=== PATIENT | female | born 1945 | race Caucasian/White ===

== ENCOUNTER 2022-01-23 15:55 | Emergency (ER) | payer MEDICARE, MEDICAID ==
[2022-01-23 16:36] LABS: #Eosinphils 0.2 10x3/uL (0.0-0.5); #Monocytes 0.8 10x3/uL (0.0-1.1); #Neutrophils 7.3 10x3/uL (1.5-8.4); %Basophils 0.3 % (0.0-2.0); %Eosinophils 1.9 % (0.0-6.0); %Monocytes 7.5 % (0.0-10.0); %Neutrophils 70.7 % (40.0-75.0); Hemoglobin 11.8 g/dL (12.0-15.5); Mean Corpuscular HGB CONC 30.7 g/dL (32.0-36.0); Mean Corpuscular Hemoglobin 25.3 pg (27.0-33.0); Mean Corpuscular Volume 82.2 fl (81.6-98.3); Mean Platelet Volume 9.5 fl (7.4-10.4); Platelet Count 294 10x3/uL (150-450); RBC Distribution Width 16.5 % (11.5-14.5); Red Blood Cell (RBC) Count 4.67 10x6/uL (3.90-5.03); White Blood Cell (WBC) Count 10.3 10x3/uL (3.5-10.5)
[2022-01-23 16:47] LABS: ALT (SGPT) 12 U/L (8-55); AST (SGOT) 16 U/L (5-34); Alkaline Phosphatase 87 U/L (40-110); Anion Gap 18 mmol/L (10-20); BUN (Urea Nitrogen) 33 mg/dL (9.8-20.1); Bilirubin, Total 0.7 mg/dL (0.2-1.2); Calc. Creatinine Clearance 0 mL/min (70-130); Calcium 10.5 mg/dL (7.8-10.44); Carbon Dioxide 19 mmol/L (23-31); Chloride 104 mmol/L (98-107); Estimated GFR 65; Globulin 3.3 g/dL (2.4-3.5); Glucose 134 mg/dL (83-110); Potassium 4.2 mmol/L (3.5-5.1); Protein, Total 7.3 g/dL (5.8-8.1); Sodium 137 mmol/L (136-145)
[2022-01-23] MEDS ORDERED: Ventolin HFA Inhaler 60 PUFF INHALER ONE (18:03)
[2022-01-23] MEDS ORDERED: PROPOFOL 20 ML ONE (19:12)
[2022-01-23] MEDS ORDERED: PHENYLEPHRINE-NS 100 MCG/ML 10 ML SYRINGE ONE (19:12)
== END 2022-01-23 19:15 | disposition admitted as inpatient to this hospital (09) ==
LOC: CSHERS 15:55
PROC: 0D728ZZ Dilation of Middle Esophagus, Via Natural or Artificial Opening Endoscopic (ICD-10-PCS; principal; 2022-01-23)
DX: T18.128A Food in esophagus causing other injury, initial encounter (principal); J44.9 Chronic obstructive pulmonary disease, unspecified; K21.9 Gastro-esophageal reflux disease without esophagitis; E78.00 Pure hypercholesterolemia, unspecified; I10 Essential (primary) hypertension
CPT/HCPCS: 43249; 71045; 80053; 85025; 93005; 96374; 99285; J1610; 36415; J2704

== ENCOUNTER 2022-04-09 09:22 | Emergency (ER) | payer MEDICARE, MEDICAID ==
[2022-04-09] MEDS ORDERED: Ibuprofen 200 MG TAB ONE (09:55)
[2022-04-09] MEDS ORDERED: Acetaminophen 325 MG TAB ONE (09:55)
[2022-04-09 10:25] LABS: Bilirubin Neg (Negative); Blood, Urine Negative (Negative); Clarity Clear (Clear); Glucose, Urine (Dipstick) >=1000 mg/dL (Negative); Ketone, Urine Negative (Negative); Leukocyte Negative (Negative); Nitrite Negative (Negative); Protein, Urine (Dipstick) Negative (Neg-Trace); Urobilinogen Normal mg/dL (Less than 2)
[2022-04-09 10:34] LABS: #Basophils 0.1 10x3/uL (0.0-0.2); #Eosinphils 0.5 10x3/uL (0.0-0.5); #Monocytes 1.2 10x3/uL (0.0-1.1); #Neutrophils 9.6 10x3/uL (1.5-8.4); %Basophils 0.4 % (0.0-2.0); %Eosinophils 3.7 % (0.0-6.0); %Lymphocytes 14.4 % (18.0-47.0); %Monocytes 9.1 % (0.0-10.0); Hemoglobin 11.7 g/dL (12.0-15.5); Mean Corpuscular Hemoglobin 26.7 pg (27.0-33.0); Mean Corpuscular Volume 81.1 fl (81.6-98.3); Mean Platelet Volume 9.6 fl (7.4-10.4); Platelet Count 360 10x3/uL (150-450); Red Blood Cell (RBC) Count 4.38 10x6/uL (3.90-5.03); White Blood Cell (WBC) Count 13.3 10x3/uL (3.5-10.5)
[2022-04-09 10:42] LABS: ALT (SGPT) 12 U/L (8-55); AST (SGOT) 10 U/L (5-34); Albumin 3.7 g/dL (3.4-4.8); Alkaline Phosphatase 215 U/L (40-110); Anion Gap 18 mmol/L (10-20); BUN (Urea Nitrogen) 50 mg/dL (9.8-20.1); Bilirubin, Total 0.4 mg/dL (0.2-1.2); Calc. Creatinine Clearance 0 mL/min (70-130); Calcium 9.6 mg/dL (7.8-10.44); Carbon Dioxide 22 mmol/L (23-31); Chloride 100 mmol/L (98-107); Estimated GFR 49; Globulin 3.4 g/dL (2.4-3.5); Glucose 397 mg/dL (83-110); Lipase 18 U/L (8-78); Potassium 4.1 mmol/L (3.5-5.1); Protein, Total 7.1 g/dL (5.8-8.1); Sodium 136 mmol/L (136-145)
== END 2022-04-09 15:17 | disposition home or self-care (01) ==
LOC: CSHERS 09:22
DX: M54.50 Low back pain, unspecified (principal); E86.0 Dehydration; E11.9 Type 2 diabetes mellitus without complications; J44.9 Chronic obstructive pulmonary disease, unspecified; E78.5 Hyperlipidemia, unspecified; K21.9 Gastro-esophageal reflux disease without esophagitis; I10 Essential (primary) hypertension
CPT/HCPCS: 72131; 80053; 81003; 83690; 85025; 96360; 96361

== ENCOUNTER 2022-08-20 18:20 | Observation (INO) | payer MEDICARE, MEDICAID ==
[2022-08-20 19:40] LABS: #Basophils 0.1 10x3/uL (0.0-0.2); #Eosinphils 0.1 10x3/uL (0.0-0.5); #Monocytes 1.4 10x3/uL (0.0-1.1); #Neutrophils 10.4 10x3/uL (1.5-8.4); %Basophils 0.4 % (0.0-2.0); %Eosinophils 0.7 % (0.0-6.0); %Lymphocytes 13.3 % (18.0-47.0); %Monocytes 9.9 % (0.0-10.0); %Neutrophils 75.3 % (40.0-75.0); Hemoglobin 11.2 g/dL (12.0-15.5); Mean Corpuscular HGB CONC 31.2 g/dL (32.0-36.0); Mean Corpuscular Hemoglobin 25.7 pg (27.0-33.0); Mean Corpuscular Volume 82.3 fl (81.6-98.3); Mean Platelet Volume 10.2 fl (7.4-10.4); Platelet Count 193 10x3/uL (150-450); RBC Distribution Width 15.9 % (11.5-14.5); Red Blood Cell (RBC) Count 4.36 10x6/uL (3.90-5.03); White Blood Cell (WBC) Count 13.8 10x3/uL (3.5-10.5)
[2022-08-20 19:49] LABS: Acetaminophen Less than 10.0 mcg/mL (10.0-30.0); Alcohol Less than 10 mg/dL (Less than 10); Salicylate Less than 8.0 mg/dL (15.0-30.0)
[2022-08-20 19:50] LABS: ALT (SGPT) 42 U/L (8-55); AST (SGOT) 64 U/L (5-34); Albumin 3.8 g/dL (3.4-4.8); Alkaline Phosphatase 113 U/L (40-110); Anion Gap 16 mmol/L (10-20); BUN (Urea Nitrogen) 47 mg/dL (9.8-20.1); Calc. Creatinine Clearance 0 mL/min (70-130); Calcium 8.9 mg/dL (7.8-10.44); Carbon Dioxide 22 mmol/L (23-31); Chloride 104 mmol/L (98-107); Estimated GFR 40; Glucose 195 mg/dL (83-110); Potassium 4.2 mmol/L (3.5-5.1); Protein, Total 6.8 g/dL (5.8-8.1); Sodium 138 mmol/L (136-145)
[2022-08-20 20:32] LABS: Bilirubin Neg (Negative); Blood, Urine Negative (Negative); Clarity Mucous (Clear); Glucose, Urine (Dipstick) Normal (Negative); Ketone, Urine Negative (Negative); Leukocyte Negative (Negative); Nitrite Negative (Negative); Protein, Urine (Dipstick) 15 mg/dl (Neg-Trace); Urobilinogen Normal mg/dL (Less than 2)
[2022-08-20 20:38] LABS: Platelet Clumps SLIGHT; Platelet Morphology Comment Appears Adequate; RBC Morphology Within Normal Limits
[2022-08-20 20:42] LABS: Amphetamine Not Detected (NotDetected); Barbiturates Screen Not Detected (NotDetected); Benzodiazepine Screen Not Detected (NotDetected); Cocaine Metabolite Screen Not Detected (NotDetected); Methadone Not Detected (NotDetected); Methamphetamine Not Detected (NotDetected); Opiate Screen Detected (NotDetected); Oxycodone Screen Not Detected (NotDetected); Phencyclidine (PCP) Not Detected (NotDetected); THC/Cannabinoid Screen Not Detected (NotDetected); Tricyclic Screen Not Detected (NotDetected)
[2022-08-20 20:44] LABS: CKMB 29.1 ng/mL (0-6.6)
[2022-08-20] MEDS ORDERED: Dextrose 50% Abboject 50 ML SYRINGE SLOW IVP PRN (22:31)
[2022-08-20] MEDS ORDERED: HumaLOG 300 UNITS/3 ML VIAL SC PRN (22:31)
[2022-08-20] MEDS ORDERED: Dextrose 5% in Water 1,000 ML IV PRN (22:31)
[2022-08-20 23:13] LABS: Troponin I 0.208 ng/mL (< 0.028)
[2022-08-21] MEDS ORDERED: CEFAZOLIN 1 GM VIAL ONE ×2 (00:41→07:48)
[2022-08-21] MEDS: CEFAZOLIN 1 GM in Sodium Chloride 0.9% 100 ML IVPB SCH ×2 (00:58→08:14)
[2022-08-21] MEDS: Sodium Chloride 0.9% 1,000 ML IV SCH ×2 (00:58→08:14)
[2022-08-21 04:44] LABS: #Basophils 0.1 10x3/uL (0.0-0.2); #Eosinphils 0.3 10x3/uL (0.0-0.5); #Monocytes 1.1 10x3/uL (0.0-1.1); #Neutrophils 8.7 10x3/uL (1.5-8.4); %Basophils 0.4 % (0.0-2.0); %Eosinophils 2.1 % (0.0-6.0); %Lymphocytes 14.9 % (18.0-47.0); %Monocytes 9.1 % (0.0-10.0); Anion Gap 14 mmol/L (10-20); BUN (Urea Nitrogen) 34 mg/dL (9.8-20.1); Calc. Creatinine Clearance 84 mL/min (70-130); Calcium 8.4 mg/dL (7.8-10.44); Carbon Dioxide 21 mmol/L (23-31); Chloride 110 mmol/L (98-107); Estimated GFR 59; Glucose 136 mg/dL (83-110); Hemoglobin 10.2 g/dL (12.0-15.5); Mean Corpuscular HGB CONC 31.4 g/dL (32.0-36.0); Mean Corpuscular Volume 82.7 fl (81.6-98.3); Mean Platelet Volume 9.6 fl (7.4-10.4); Platelet Count 294 10x3/uL (150-450); Potassium 3.8 mmol/L (3.5-5.1); RBC Distribution Width 15.8 % (11.5-14.5); Red Blood Cell (RBC) Count 3.93 10x6/uL (3.90-5.03); Sodium 141 mmol/L (136-145); White Blood Cell (WBC) Count 11.9 10x3/uL (3.5-10.5)
[2022-08-21 04:57] LABS: Troponin I 0.224 ng/mL (< 0.028)
[2022-08-21] MEDS ORDERED: Insulin Regular 300 UNITS/3 ML VIAL ONE (07:27)
[2022-08-21] MEDS ORDERED: Mupirocin 2% Ointment 22 GM Tube TOP SCH (09:00)
[2022-08-21 09:02] VITALS: BMI 36.3
[2022-08-21] MEDS ORDERED: traMADol HCl 50 MG TAB PO SCH (10:00)
[2022-08-21] MEDS ORDERED: Gabapentin 100 MG CAP PO SCH (10:15)
[2022-08-21 13:22] VITALS: BP 167/70; TEMP 97.5
== END 2022-08-21 15:26 | disposition home or self-care (01) ==
LOC: CSHERS 18:20 → CSHERHOLD 23:00 → INTOOBSV 23:00 → CSHTELE 08-21 07:31
PROVIDERS: ADMIT Family Medicine; ATTEND Family Medicine
DX: G93.40 Encephalopathy, unspecified (principal); D72.829 Elevated white blood cell count, unspecified; R77.8 Other specified abnormalities of plasma proteins; I12.9 Hypertensive chronic kidney disease with stage 1 through stage 4 chronic kidney disease, or unspecified chronic kidney disease; N18.32 Chronic kidney disease, stage 3b; R07.9 Chest pain, unspecified; E11.22 Type 2 diabetes mellitus with diabetic chronic kidney disease; J44.9 Chronic obstructive pulmonary disease, unspecified; R41.82 Altered mental status, unspecified; G89.29 Other chronic pain; Z79.4 Long term (current) use of insulin; Z79.899 Other long term (current) drug therapy; E78.5 Hyperlipidemia, unspecified; Z90.710 Acquired absence of both cervix and uterus; Z90.49 Acquired absence of other specified parts of digestive tract; Z88.5 Allergy status to narcotic agent
CPT/HCPCS: 36415; 36416; 51701; 70450; 71045; 80048; 80053; 80306; 80307; 81003; 82553; 83735; 83880; 84145; 84443; 84484; 85025; 87040; 93005; 93010; 93306; 94760; 94762; 96374; G0378; J0690; J1815; J3490; J7050

== ENCOUNTER 2022-12-17 12:59 | Inpatient (IN) | payer MEDICARE ==
[2022-12-17] MEDS ORDERED: Ondansetron PF 4 MG/2 ML Vial IVP PRN (14:22)
[2022-12-17] MEDS ORDERED: Nitroglycerin 0.4 MG TAB (25 Tab Bottle) SL PRN (14:22)
[2022-12-17] MEDS ORDERED: Glucagon 1 MG/ML KIT IM PRN (14:53)
[2022-12-17] MEDS ORDERED: Dextrose 5% in Water 1,000 ML IV PRN (14:53)
[2022-12-17] MEDS ORDERED: Dextrose 50% Abboject 50 ML SYRINGE SLOW IVP PRN (14:53)
[2022-12-17 15:49] LABS: Troponin I Less than 0.010 ng/mL (< 0.028)
[2022-12-17] MEDS: Acetaminophen 325 MG TAB PO PRN (17:02)
[2022-12-17 18:11] LABS: Troponin I Less than 0.010 ng/mL (< 0.028)
[2022-12-17 19:59] LABS: Hemoglobin A1c 12.8 % (4.0-6.0)
[2022-12-17 21:13] VITALS: BMI 34.7
[2022-12-17] MEDS: HumaLOG 300 UNITS/3 ML VIAL SC PRN (22:09)
[2022-12-18] MEDS: Acetaminophen 325 MG TAB PO PRN ×2 (03:48→08:51)
[2022-12-18 04:45] LABS: Cardiac Risk 4.1 (Less than 4.5)
[2022-12-18] MEDS ORDERED: Lorazepam 0.5 MG TAB PO PRN (08:22)
[2022-12-18] MEDS: Aspirin Chewable 81 MG TAB PO SCH (08:51)
[2022-12-18] MEDS: Lorazepam 0.5 MG TAB PO PRN (10:36)
[2022-12-18] MEDS: traMADol HCl 50 MG TAB PO PRN (10:36)
[2022-12-18] MEDS ORDERED: Lisinopril 5 MG TAB PO SCH (12:00)
[2022-12-18] MEDS: HumaLOG 300 UNITS/3 ML VIAL SC PRN ×2 (12:17→16:45)
[2022-12-18] MEDS: Atorvastatin Calcium 20 MG TAB PO SCH (21:00)
[2022-12-19] MEDS: Lisinopril 5 MG TAB PO SCH (07:45)
[2022-12-19] MEDS: Aspirin Chewable 81 MG TAB PO SCH (09:05)
[2022-12-19] MEDS ORDERED: [UNRECOGNIZED DRUG - OTHER] PO PRN (11:35)
[2022-12-19] MEDS ORDERED: BUDESONIDE FORMOTEROL PO PRN (11:35)
[2022-12-19] MEDS: traMADol HCl 50 MG TAB PO PRN ×2 (14:08→20:55)
[2022-12-19] MEDS: HumaLOG 300 UNITS/3 ML VIAL SC PRN ×2 (14:11→20:57)
[2022-12-19] MEDS: metFORMIN 500 MG TAB PO SCH (16:18)
[2022-12-19] MEDS: Mometasone/Formoterol 60 PUFF AER INH SCH (19:54)
[2022-12-19] MEDS: Gabapentin 300 MG CAP PO SCH (20:54)
[2022-12-19] MEDS: Docusate 100 MG CAP PO SCH (20:56)
[2022-12-19] MEDS: Atorvastatin Calcium 20 MG TAB PO SCH (20:56)
[2022-12-19] MEDS ORDERED: Lantus 1000 UNITS/10 ML VIAL SC SCH (21:00)
[2022-12-20] MEDS: Mometasone/Formoterol 60 PUFF AER INH SCH ×2 (07:02→19:45)
[2022-12-20] MEDS: HumaLOG 300 UNITS/3 ML VIAL SC PRN ×4 (07:26→21:46)
[2022-12-20] MEDS ORDERED: Lantus 1000 UNITS/10 ML VIAL SC SCH (09:00)
[2022-12-20] MEDS: Amlodipine 10 MG TAB PO SCH (09:20)
[2022-12-20] MEDS: Lisinopril 5 MG TAB PO SCH (09:20)
[2022-12-20] MEDS: Aspirin Chewable 81 MG TAB PO SCH (09:21)
[2022-12-20] MEDS: Lantus 1000 UNITS/10 ML VIAL SC SCH ×2 (09:21→21:46)
[2022-12-20] MEDS: Docusate 100 MG CAP PO SCH ×2 (09:21→21:43)
[2022-12-20] MEDS: traMADol HCl 50 MG TAB PO PRN ×2 (09:26→17:20)
[2022-12-20] MEDS ORDERED: Ipratropium/Albuterol 3 ML NEB NEB PRN (10:47)
[2022-12-20 11:43] LABS: #Eosinphils 0.2 10x3/uL (0.0-0.5); #Monocytes 0.7 10x3/uL (0.0-1.1); #Neutrophils 6.8 10x3/uL (1.5-8.4); %Basophils 0.3 % (0.0-2.0); %Eosinophils 2.3 % (0.0-6.0); %Lymphocytes 14.8 % (18.0-47.0); %Monocytes 7.6 % (0.0-10.0); %Neutrophils 74.6 % (40.0-75.0); Hematocrit 39.5 % (34.9-44.5); Hemoglobin 12.6 g/dL (12.0-15.5); Mean Corpuscular HGB CONC 31.9 g/dL (32.0-36.0); Mean Corpuscular Hemoglobin 28.3 pg (27.0-33.0); Mean Corpuscular Volume 88.6 fl (81.6-98.3); Mean Platelet Volume 9.7 fl (7.4-10.4); Platelet Count 298 10x3/uL (150-450); RBC Distribution Width 12.9 % (11.5-14.5); Red Blood Cell (RBC) Count 4.46 10x6/uL (3.90-5.03); White Blood Cell (WBC) Count 9.2 10x3/uL (3.5-10.5)
[2022-12-20 13:40] LABS: ALT (SGPT) 14 U/L (8-55); AST (SGOT) 15 U/L (5-34); Albumin 3.7 g/dL (3.4-4.8); Alkaline Phosphatase 93 U/L (40-110); Anion Gap 17 mmol/L (10-20); BUN (Urea Nitrogen) 35 mg/dL (9.8-20.1); Bilirubin, Total 0.6 mg/dL (0.2-1.2); Calc. Creatinine Clearance 64 mL/min (70-130); Calcium 8.9 mg/dL (7.8-10.44); Carbon Dioxide 20 mmol/L (23-31); Chloride 105 mmol/L (98-107); Estimated GFR 53; Globulin 2.9 g/dL (2.4-3.5); Glucose 258 mg/dL (83-110); Potassium 4.4 mmol/L (3.5-5.1); Protein, Total 6.6 g/dL (5.8-8.1); Sodium 138 mmol/L (136-145)
[2022-12-20] MEDS: Lorazepam 0.5 MG TAB PO PRN (17:19)
[2022-12-20] MEDS: metFORMIN 500 MG TAB PO SCH (17:19)
[2022-12-20] MEDS ORDERED: Ziprasidone 20 MG CAP PO SCH (18:30)
[2022-12-20] MEDS: Gabapentin 300 MG CAP PO SCH (21:43)
[2022-12-20] MEDS: Atorvastatin Calcium 20 MG TAB PO SCH (21:45)
[2022-12-21] MEDS: HumaLOG 300 UNITS/3 ML VIAL SC PRN ×4 (06:44→21:38)
[2022-12-21] MEDS: Mometasone/Formoterol 60 PUFF AER INH SCH ×2 (07:20→18:48)
[2022-12-21] MEDS: Amlodipine 10 MG TAB PO SCH (11:22)
[2022-12-21] MEDS: Aspirin Chewable 81 MG TAB PO SCH (11:23)
[2022-12-21] MEDS: Docusate 100 MG CAP PO SCH ×2 (11:24→21:38)
[2022-12-21] MEDS: Lisinopril 5 MG TAB PO SCH (11:24)
[2022-12-21] MEDS: DULoxetine 20 MG CAP PO SCH (11:24)
[2022-12-21] MEDS: Lantus 1000 UNITS/10 ML VIAL SC SCH ×2 (11:31→21:39)
[2022-12-21] MEDS: metFORMIN 500 MG TAB PO SCH ×2 (16:42→21:37)
[2022-12-21] MEDS ORDERED: QUEtiapine 25 MG TAB PO SCH (21:00)
[2022-12-21] MEDS: Gabapentin 300 MG CAP PO SCH (21:37)
[2022-12-21] MEDS: Atorvastatin Calcium 20 MG TAB PO SCH (21:37)
[2022-12-21] MEDS: Acetaminophen 325 MG TAB PO PRN (21:38)
[2022-12-21] MEDS: traMADol HCl 50 MG TAB PO PRN (23:14)
[2022-12-22] MEDS: HumaLOG 300 UNITS/3 ML VIAL SC PRN ×2 (06:31→18:00)
[2022-12-22] MEDS: Mometasone/Formoterol 60 PUFF AER INH SCH (07:15)
[2022-12-22] MEDS: Aspirin Chewable 81 MG TAB PO SCH (08:52)
[2022-12-22] MEDS: Amlodipine 10 MG TAB PO SCH (08:52)
[2022-12-22] MEDS: DULoxetine 20 MG CAP PO SCH (08:52)
[2022-12-22] MEDS: Docusate 100 MG CAP PO SCH (08:52)
[2022-12-22] MEDS: metFORMIN 500 MG TAB PO SCH ×2 (08:52→14:05)
[2022-12-22] MEDS: Lisinopril 5 MG TAB PO SCH (08:52)
[2022-12-22] MEDS: Lantus 1000 UNITS/10 ML VIAL SC SCH (08:53)
[2022-12-22 11:35] LABS: #Eosinphils 0.2 10x3/uL (0.0-0.5); #Monocytes 0.7 10x3/uL (0.0-1.1); #Neutrophils 5.2 10x3/uL (1.5-8.4); %Basophils 0.4 % (0.0-2.0); %Eosinophils 3.2 % (0.0-6.0); %Lymphocytes 18.1 % (18.0-47.0); %Monocytes 8.9 % (0.0-10.0); Hemoglobin 12.3 g/dL (12.0-15.5); Mean Corpuscular HGB CONC 30.8 g/dL (32.0-36.0); Mean Corpuscular Hemoglobin 28.5 pg (27.0-33.0); Mean Corpuscular Volume 92.6 fl (81.6-98.3); Mean Platelet Volume 10.2 fl (7.4-10.4); Platelet Count 239 10x3/uL (150-450); RBC Distribution Width 13.1 % (11.5-14.5); Red Blood Cell (RBC) Count 4.32 10x6/uL (3.90-5.03); White Blood Cell (WBC) Count 7.6 10x3/uL (3.5-10.5)
[2022-12-22 11:38] LABS: ALT (SGPT) 17 U/L (8-55); AST (SGOT) 18 U/L (5-34); Albumin 3.4 g/dL (3.4-4.8); Alkaline Phosphatase 100 U/L (40-110); Anion Gap 15 mmol/L (10-20); BUN (Urea Nitrogen) 38 mg/dL (9.8-20.1); Bilirubin, Total 0.4 mg/dL (0.2-1.2); Calc. Creatinine Clearance 68 mL/min (70-130); Calcium 8.8 mg/dL (7.8-10.44); Carbon Dioxide 21 mmol/L (23-31); Chloride 107 mmol/L (98-107); Estimated GFR 57; Glucose 196 mg/dL (83-110); Potassium 4.5 mmol/L (3.5-5.1); Protein, Total 6.4 g/dL (5.8-8.1); Sodium 138 mmol/L (136-145)
[2022-12-22] MEDS ORDERED: Meropenem 1 GM in Sodium Chloride 0.9% 100 ML IVPB SCH ×2 (12:00→20:00)
[2022-12-22] MEDS ORDERED: Ertapenem 1 GM in Sodium Chloride 0.9% 50 ML IVPB SCH (16:00)
[2022-12-22 18:17] VITALS: BP 145/72; TEMP 97.4
== END 2022-12-22 19:29 | DRG 313 ==
LOC: CSHTELE 14:04 → OBSVTOIN 12-19 11:27
PROVIDERS: ADMIT Internal Medicine; ATTEND Internal Medicine
DX: R07.2 Precordial pain (principal); G93.40 Encephalopathy, unspecified; N30.00 Acute cystitis without hematuria; F41.9 Anxiety disorder, unspecified; F03.90 Unspecified dementia, unspecified severity, without behavioral disturbance, psychotic disturbance, mood disturbance, and anxiety; I10 Essential (primary) hypertension; E78.5 Hyperlipidemia, unspecified; E11.9 Type 2 diabetes mellitus without complications; I25.10 Atherosclerotic heart disease of native coronary artery without angina pectoris; E11.65 Type 2 diabetes mellitus with hyperglycemia; J44.9 Chronic obstructive pulmonary disease, unspecified; B96.1 Klebsiella pneumoniae [K. pneumoniae] as the cause of diseases classified elsewhere; G47.33 Obstructive sleep apnea (adult) (pediatric); Z79.4 Long term (current) use of insulin; Z93.3 Colostomy status; Z90.49 Acquired absence of other specified parts of digestive tract; Z90.710 Acquired absence of both cervix and uterus; Z88.5 Allergy status to narcotic agent; Z79.899 Other long term (current) drug therapy
CPT/HCPCS: 36415; 36416; 80053; 80061; 83036; 85025; 87040; 87077; 87086; 87186; 93005; 93010; 94640; 94760; J1335; J1650; J1815; J2185; J2405; J3490; J7620

== ENCOUNTER 2023-03-21 02:52 | Inpatient (IN) | payer MEDICARE ==
[2023-03-21 03:31] LABS: #Eosinphils 0.2 10x3/uL (0.0-0.5); #Monocytes 1.1 10x3/uL (0.0-1.1); #Neutrophils 8.5 10x3/uL (1.5-8.4); %Basophils 0.3 % (0.0-2.0); %Eosinophils 1.3 % (0.0-6.0); %Lymphocytes 15.6 % (18.0-47.0); %Monocytes 9.6 % (0.0-10.0); %Neutrophils 72.9 % (40.0-75.0); Hematocrit 41.4 % (34.9-44.5); Hemoglobin 13.9 g/dL (12.0-15.5); Mean Corpuscular HGB CONC 33.6 g/dL (32.0-36.0); Mean Corpuscular Hemoglobin 27.6 pg (27.0-33.0); Mean Corpuscular Volume 82.3 fl (81.6-98.3); Mean Platelet Volume 10.5 fl (7.4-10.4); Platelet Count 318 10x3/uL (150-450); RBC Distribution Width 13.5 % (11.5-14.5); Red Blood Cell (RBC) Count 5.03 10x6/uL (3.90-5.03); White Blood Cell (WBC) Count 11.7 10x3/uL (3.5-10.5)
[2023-03-21 03:47] LABS: ALT (SGPT) 11 U/L (8-55); AST (SGOT) 8 U/L (5-34); Albumin 4.1 g/dL (3.4-4.8); Alkaline Phosphatase 196 U/L (40-110); Anion Gap 20 mmol/L (10-20); BUN (Urea Nitrogen) 68 mg/dL (9.8-20.1); Bilirubin, Total 0.5 mg/dL (0.2-1.2); Calc. Creatinine Clearance 0 mL/min (70-130); Calcium 9.5 mg/dL (7.8-10.44); Carbon Dioxide 23 mmol/L (23-31); Chloride 88 mmol/L (98-107); Estimated GFR 35; Globulin 3.5 g/dL (2.4-3.5); Lipase 23 U/L (8-78); Potassium 5.5 mmol/L (3.5-5.1); Protein, Total 7.6 g/dL (5.8-8.1); Sodium 125 mmol/L (136-145)
[2023-03-21 03:50] LABS: Troponin I Less than 0.010 ng/mL (< 0.028)
[2023-03-21 03:54] LABS: Glucose Greater than 800 mg/dL (83-110)
[2023-03-21 03:57] LABS: Bilirubin Neg (Negative); Blood, Urine Negative (Negative); Clarity Clear (Clear); Glucose, Urine (Dipstick) >=1000 mg/dL (Negative); Ketone, Urine Negative (Negative); Leukocyte Negative (Negative); Nitrite Negative (Negative); Protein, Urine (Dipstick) Negative (Neg-Trace); Specific Gravity, Urine 1.005 (1.005-1.030); Urobilinogen Normal mg/dL (Less than 2); pH, Urine 6.5 (5.0-9.0)
[2023-03-21 04:07] LABS: CAUTI Indications for Culture Alt mental st,lethar; RBC/HPF 0-3 HPF (0-3); Squamous Epithelial 0-3 HPF (0-3); WBC/HPF 0-3 HPF (0-3)
[2023-03-21 04:12] LABS: Bacteria/HPF 2+ HPF (None Seen); Urine Culture Reflex No No
[2023-03-21] MEDS ORDERED: Methocarbamol 500 MG TAB PO SCH ×2 (04:15→05:30)
[2023-03-21] MEDS ORDERED: Lidocaine 4% Patch TD SCH (04:15)
[2023-03-21] MEDS ORDERED: Insulin Regular 300 UNITS/3 ML VIAL ONE (04:37)
[2023-03-21 04:40] LABS: Analyzer IN Cardio CS ER; Base Excess (BEa) 1.7 mEq/L (-2.0 to +3.0); Calcium, Ionized (arterial) 1.16 mmol/L (1.12-1.30); Carboxyhemoglobin (COHb) 0.3 gm% (0.0-3.0); Critical Notified By: Udy, RRT; Hematocrit-ABG 42 % (36.0-47.0); Hemoglobin (Hb) 14.2 g/dL (12.0-16.0); O2 Tension (PaO2), arterial 73.5 mmHg (> 70.0); Potassium - ABG Lab 4.93 mmol/L (3.70-5.30); Puncture Site RRA; RapidComm Collect By Udy, RRT; pH, Arterial 7.431 (7.35-7.45)
[2023-03-21] MEDS ORDERED: Dextrose 50% Abboject 50 ML SYRINGE SLOW IVP PRN (04:53)
[2023-03-21] MEDS ORDERED: Glucagon 1 MG/ML KIT IM PRN (04:53)
[2023-03-21] MEDS ORDERED: Dextrose 5% in Water 1,000 ML IV PRN (04:53)
[2023-03-21] MEDS ORDERED: Guaifenesin DM 100-10/5 ML UDCUP PO PRN (04:54)
[2023-03-21] MEDS ORDERED: Ondansetron PF 4 MG/2 ML Vial IVP PRN (04:54)
[2023-03-21] MEDS ORDERED: Senokot S 8.6-50 MG TAB PO PRN (04:54)
[2023-03-21] MEDS ORDERED: Acetaminophen 325 MG TAB PO PRN (04:54)
[2023-03-21] MEDS ORDERED: Calcium Carbonate 500 MG ChewTAB PO PRN (04:54)
[2023-03-21] MEDS ORDERED: Gabapentin 300 MG CAP PO SCH ×2 (05:00→21:00)
[2023-03-21] MEDS ORDERED: Ipratropium/Albuterol 3 ML NEB NEB PRN (05:05)
[2023-03-21] MEDS ORDERED: HYDROcodone/Acetaminophen 10/325 mg Tablet ONE (05:09)
[2023-03-21] MEDS ORDERED: INSULIN REGULAR IN 0.9 % NACL 100 UNITS in Premix 1 BAG IVPB SCH (05:30)
[2023-03-21] MEDS ORDERED: Gabapentin 300 MG CAP ONE (06:39)
[2023-03-21] MEDS ORDERED: INSULIN REGULAR IN 0.9 % NACL 100 UNITS/100 ML BAG ONE (07:12)
[2023-03-21] MEDS: Sodium Chloride 0.9% 1,000 ML IV SCH ×3 (08:19→21:03)
[2023-03-21 08:20] LABS: Lactic Acid 1.7 mmol/L (0.5-2.2)
[2023-03-21 08:22] LABS: Anion Gap 16 mmol/L (10-20); BUN (Urea Nitrogen) 64 mg/dL (9.8-20.1); Calc. Creatinine Clearance 56 mL/min (70-130); Carbon Dioxide 22 mmol/L (23-31); Chloride 99 mmol/L (98-107); Estimated GFR 45; Potassium 4.4 mmol/L (3.5-5.1); Sodium 133 mmol/L (136-145)
[2023-03-21 08:23] LABS: Calcium 8.9 mg/dL (7.8-10.44)
[2023-03-21] MEDS: Mometasone/Formoterol 60 PUFF AER INH SCH ×2 (08:53→20:00)
[2023-03-21] MEDS ORDERED: Apixaban 5 MG TAB ONE (08:56)
[2023-03-21] MEDS ORDERED: Famotidine 20 MG TAB PO SCH ×2 (09:00→21:00)
[2023-03-21 09:06] LABS: Glucose 545 mg/dL (83-110)
[2023-03-21] MEDS ORDERED: Amlodipine 5 MG TAB ONE (09:32)
[2023-03-21] MEDS ORDERED: Famotidine 20 MG TAB ONE (09:34)
[2023-03-21] MEDS: Amlodipine 5 MG TAB PO SCH (09:49)
[2023-03-21] MEDS: Atorvastatin Calcium 20 MG TAB PO SCH (09:50)
[2023-03-21] MEDS: DULoxetine 20 MG CAP PO SCH (09:50)
[2023-03-21] MEDS: Apixaban 5 MG TAB PO SCH ×2 (09:50→21:02)
[2023-03-21] MEDS ORDERED: Fluconazole 100 MG TAB PO SCH (11:30)
[2023-03-21 11:47] LABS: Anion Gap 14 mmol/L (10-20); BUN (Urea Nitrogen) 60 mg/dL (9.8-20.1); Calc. Creatinine Clearance 64 mL/min (70-130); Calcium 8.8 mg/dL (7.8-10.44); Carbon Dioxide 20 mmol/L (23-31); Chloride 105 mmol/L (98-107); Estimated GFR 53; Glucose 377 mg/dL (83-110); Sodium 135 mmol/L (136-145)
[2023-03-21 15:16] LABS: Amphetamine Not Detected (NotDetected); Barbiturates Screen Not Detected (NotDetected); Benzodiazepine Screen Not Detected (NotDetected); Cocaine Metabolite Screen Not Detected (NotDetected); Methadone Not Detected (NotDetected); Methamphetamine Not Detected (NotDetected); Opiate Screen Not Detected (NotDetected); Oxycodone Screen Not Detected (NotDetected); Phencyclidine (PCP) Not Detected (NotDetected); THC/Cannabinoid Screen Not Detected (NotDetected); Tricyclic Screen Not Detected (NotDetected)
[2023-03-21] MEDS: Acetaminophen 500 MG TAB PO SCH ×2 (15:55→21:01)
[2023-03-21 16:05] VITALS: BMI 32.1
[2023-03-21 16:05] LABS: Anion Gap 13 mmol/L (10-20); BUN (Urea Nitrogen) 55 mg/dL (9.8-20.1); Calc. Creatinine Clearance 74 mL/min (70-130); Calcium 8.6 mg/dL (7.8-10.44); Carbon Dioxide 22 mmol/L (23-31); Chloride 109 mmol/L (98-107); Estimated GFR 63; Glucose 169 mg/dL (83-110); Potassium 3.8 mmol/L (3.5-5.1); Sodium 140 mmol/L (136-145)
[2023-03-21 20:27] LABS: Anion Gap 12 mmol/L (10-20); BUN (Urea Nitrogen) 51 mg/dL (9.8-20.1); Calc. Creatinine Clearance 74 mL/min (70-130); Calcium 8.3 mg/dL (7.8-10.44); Carbon Dioxide 22 mmol/L (23-31); Chloride 109 mmol/L (98-107); Estimated GFR 63; Glucose 251 mg/dL (83-110); Potassium 3.9 mmol/L (3.5-5.1); Sodium 139 mmol/L (136-145)
[2023-03-22 03:44] LABS: #Eosinphils 0.3 10x3/uL (0.0-0.5); #Monocytes 0.9 10x3/uL (0.0-1.1); #Neutrophils 5.1 10x3/uL (1.5-8.4); %Basophils 0.3 % (0.0-2.0); %Eosinophils 3.2 % (0.0-6.0); %Lymphocytes 26.8 % (18.0-47.0); %Monocytes 9.9 % (0.0-10.0); %Neutrophils 59.3 % (40.0-75.0); Hemoglobin 12.4 g/dL (12.0-15.5); Mean Corpuscular HGB CONC 33.5 g/dL (32.0-36.0); Mean Corpuscular Hemoglobin 28.7 pg (27.0-33.0); Mean Corpuscular Volume 85.6 fl (81.6-98.3); Mean Platelet Volume 10.1 fl (7.4-10.4); Platelet Count 278 10x3/uL (150-450); RBC Distribution Width 13.8 % (11.5-14.5); Red Blood Cell (RBC) Count 4.32 10x6/uL (3.90-5.03); White Blood Cell (WBC) Count 8.7 10x3/uL (3.5-10.5)
[2023-03-22 03:55] LABS: Anion Gap 13 mmol/L (10-20); BUN (Urea Nitrogen) 40 mg/dL (9.8-20.1); Calc. Creatinine Clearance 81 mL/min (70-130); Calcium 8.1 mg/dL (7.8-10.44); Carbon Dioxide 18 mmol/L (23-31); Chloride 112 mmol/L (98-107); Estimated GFR 71; Glucose 248 mg/dL (83-110); Sodium 139 mmol/L (136-145)
[2023-03-22] MEDS: Sodium Chloride 0.9% 1,000 ML IV SCH (05:08)
[2023-03-22] MEDS: Mometasone/Formoterol 60 PUFF AER INH SCH (06:45)
[2023-03-22] MEDS: Acetaminophen 500 MG TAB PO SCH (08:24)
[2023-03-22] MEDS: Atorvastatin Calcium 20 MG TAB PO SCH (08:24)
[2023-03-22] MEDS: Apixaban 5 MG TAB PO SCH (08:24)
[2023-03-22] MEDS: Amlodipine 5 MG TAB PO SCH (08:25)
[2023-03-22] MEDS: DULoxetine 20 MG CAP PO SCH (08:28)
[2023-03-22] MEDS ORDERED: Famotidine 20 MG TAB PO SCH (09:00)
[2023-03-22 12:45] LABS: Hemoglobin A1c Greater than 14.0 % (4.0-6.0)
[2023-03-22 14:46] VITALS: BP 133/77; TEMP 97.5
[2023-03-22] MEDS ORDERED: Lantus 1000 UNITS/10 ML VIAL SC SCH (21:00)
== END 2023-03-22 14:30 | disposition home or self-care (01) | DRG 637 ==
LOC: CSHERS 02:52 → CSHERHOLD 04:50 → CSHICU 16:20
PROVIDERS: ADMIT Student in an Organized Health Care Education/Training Program; ATTEND Internal Medicine
PROC: 4A033R1 Measurement of Arterial Saturation, Peripheral, Percutaneous Approach (ICD-10-PCS; principal; 2023-03-21)
DX: E11.65 Type 2 diabetes mellitus with hyperglycemia (principal); E11.00 Type 2 diabetes mellitus with hyperosmolarity without nonketotic hyperglycemic-hyperosmolar coma (NKHHC); E87.1 Hypo-osmolality and hyponatremia; N17.9 Acute kidney failure, unspecified; E87.5 Hyperkalemia; Z88.0 Allergy status to penicillin; Z88.8 Allergy status to other drugs, medicaments and biological substances; G89.29 Other chronic pain; M54.9 Dorsalgia, unspecified; K21.9 Gastro-esophageal reflux disease without esophagitis; E78.5 Hyperlipidemia, unspecified; I10 Essential (primary) hypertension; Z90.49 Acquired absence of other specified parts of digestive tract; Z90.710 Acquired absence of both cervix and uterus; F41.9 Anxiety disorder, unspecified; F32.A Depression, unspecified; J44.9 Chronic obstructive pulmonary disease, unspecified; B35.6 Tinea cruris
CPT/HCPCS: 36415; 36416; 36600; 71045; 80048; 80053; 80306; 81001; 82010; 82550; 82805; 83036; 83605; 83690; 83735; 83880; 83930; 84484; 85025; 87077; 87086; 93005; 93970; 94760; 97139; J1815; J7050

== ENCOUNTER 2023-09-03 19:58 | Inpatient (IN) | payer MEDICARE ==
[2023-09-03] MEDS ORDERED: Calcium Carbonate 500 MG ChewTAB PO PRN (20:22)
[2023-09-03] MEDS ORDERED: Ondansetron PF 4 MG/2 ML Vial IVP PRN (20:22)
[2023-09-03] MEDS ORDERED: Senokot S 8.6-50 MG TAB PO PRN (20:22)
[2023-09-03] MEDS ORDERED: Dextrose 50% Abboject 50 ML SYRINGE SLOW IVP PRN (20:22)
[2023-09-03] MEDS ORDERED: Guaifenesin DM 100-10/5 ML UDCUP PO PRN (20:22)
[2023-09-03] MEDS ORDERED: Glucagon 1 MG/ML KIT IM PRN (20:22)
[2023-09-03] MEDS ORDERED: Dextrose 5% in Water 1,000 ML IV PRN (20:22)
[2023-09-03 20:45] VITALS: BMI 52.0
[2023-09-03] MEDS ORDERED: Meropenem 500 MG in Sodium Chloride 0.9% 100 ML IVPB SCH (22:00)
[2023-09-03] MEDS: Lactated Ringer's 1,000 ML IV SCH (22:29)
[2023-09-03] MEDS: Lantus 1000 UNITS/10 ML VIAL SC SCH (22:30)
[2023-09-03] MEDS: Meropenem 1 GM in Sodium Chloride 0.9% 100 ML IVPB SCH (22:30)
[2023-09-03] MEDS: Docusate 100 MG CAP PO SCH (22:31)
[2023-09-03] MEDS: Gabapentin 300 MG CAP PO SCH (22:31)
[2023-09-03] MEDS: Apixaban 5 MG TAB PO SCH (22:31)
[2023-09-03] MEDS: HumaLOG 300 UNITS/3 ML VIAL SC PRN (22:33)
[2023-09-03] MEDS: traMADol HCl 50 MG TAB PO PRN (23:02)
[2023-09-04] MEDS: Meropenem 1 GM in Sodium Chloride 0.9% 100 ML IVPB SCH ×2 (05:01→14:01)
[2023-09-04 05:03] LABS: #Basophils 0.03 10x3/uL (0.0-0.2); #Eosinphils 0.28 10x3/uL (0.0-0.5); #Monocytes 0.67 10x3/uL (0.0-1.1); #Neutrophils 3.57 10x3/uL (1.5-8.4); %Basophils 0.5 % (0.0-2.0); %Eosinophils 4.5 % (0.0-6.0); %Monocytes 10.7 % (0.0-10.0); %Neutrophils 57.1 % (40.0-75.0); Hematocrit 33.4 % (34.9-44.5); Hemoglobin 11.2 g/dL (12.0-15.5); Mean Corpuscular HGB CONC 33.5 g/dL (32.0-36.0); Mean Corpuscular Hemoglobin 29.1 pg (27.0-33.0); Mean Corpuscular Volume 86.8 fl (81.6-98.3); Mean Platelet Volume 9.2 fl (7.4-10.4); Platelet Count 282 10x3/uL (150-450); Red Blood Cell (RBC) Count 3.85 10x6/uL (3.90-5.03); White Blood Cell (WBC) Count 6.3 10x3/uL (3.5-10.5)
[2023-09-04 05:14] LABS: Anion Gap 12 mmol/L (10-20); BUN (Urea Nitrogen) 36 mg/dL (9.8-20.1); Calc. Creatinine Clearance 97 mL/min (70-130); Calcium 8.7 mg/dL (7.8-10.44); Carbon Dioxide 23 mmol/L (23-31); Chloride 108 mmol/L (98-107); Estimated GFR 58; Glucose 207 mg/dL (83-110); Potassium 3.9 mmol/L (3.5-5.1); Sodium 139 mmol/L (136-145)
[2023-09-04] MEDS: Mometasone/Formoterol 60 PUFF AER INH SCH (07:00)
[2023-09-04] MEDS ORDERED: Enoxaparin 40 MG (0.4 mL) SYRINGE SC SCH (09:00)
[2023-09-04] MEDS: Amlodipine 10 MG TAB PO SCH (09:35)
[2023-09-04] MEDS: Alogliptin 25 MG TAB PO SCH (09:36)
[2023-09-04] MEDS: metFORMIN 500 MG TAB PO SCH (09:36)
[2023-09-04] MEDS: Pantoprazole DR 40 MG TAB PO SCH (09:36)
[2023-09-04] MEDS: Polyethylene Glycol 3350 17 GM Packet PO SCH (09:37)
[2023-09-04] MEDS: Atorvastatin Calcium 20 MG TAB PO SCH (09:37)
[2023-09-04] MEDS: Lidocaine 4% Patch TD SCH (09:37)
[2023-09-04 14:13] LABS: Hemoglobin A1c 11.6 % (4.0-6.0)
[2023-09-04] MEDS: Transdermal Patch Removal TOP SCH (20:57)
[2023-09-04] MEDS: Acetaminophen 325 MG TAB PO PRN (22:26)
[2023-09-05] MEDS: HYDROcodone/Acetaminophen 5/325 mg Tablet PO SCH (00:10)
[2023-09-05] MEDS ORDERED: Ondansetron ODT 4 MG TAB PO PRN (07:33)
[2023-09-05] MEDS: Valsartan 80 MG TAB PO SCH (09:18)
[2023-09-05] MEDS: Hydrochlorothiazide 25 MG TAB PO SCH (09:18)
[2023-09-05] MEDS: Lantus 1000 UNITS/10 ML VIAL SC SCH (21:35)
[2023-09-06 05:02] LABS: Anion Gap 14 mmol/L (10-20); BUN (Urea Nitrogen) 22 mg/dL (9.8-20.1); Calc. Creatinine Clearance 111 mL/min (70-130); Carbon Dioxide 22 mmol/L (23-31); Chloride 104 mmol/L (98-107); Potassium 4.3 mmol/L (3.5-5.1); Sodium 136 mmol/L (136-145)
[2023-09-06 05:03] LABS: Calcium 9.3 mg/dL (7.8-10.44); Estimated GFR 68; Glucose 166 mg/dL (83-110)
[2023-09-07] MEDS: Lantus 1000 UNITS/10 ML VIAL SC SCH (21:51)
[2023-09-08 10:49] VITALS: BMI 52.0
[2023-09-09] MEDS: Ipratropium/Albuterol 3 ML NEB NEB PRN (18:25)
[2023-09-10] MEDS: Mirtazapine 15 MG TAB PO SCH (00:40)
[2023-09-10 04:56] LABS: #Basophils 0.03 10x3/uL (0.0-0.2); #Eosinphils 0.28 10x3/uL (0.0-0.5); #Monocytes 0.92 10x3/uL (0.0-1.1); #Neutrophils 3.68 10x3/uL (1.5-8.4); %Basophils 0.4 % (0.0-2.0); %Eosinophils 4.1 % (0.0-6.0); %Monocytes 13.5 % (0.0-10.0); %Neutrophils 53.9 % (40.0-75.0); Hematocrit 32.7 % (34.9-44.5); Hemoglobin 11.1 g/dL (12.0-15.5); Mean Corpuscular HGB CONC 33.9 g/dL (32.0-36.0); Mean Corpuscular Hemoglobin 29.8 pg (27.0-33.0); Mean Corpuscular Volume 87.9 fl (81.6-98.3); Mean Platelet Volume 9.9 fl (7.4-10.4); Platelet Count 274 10x3/uL (150-450); RBC Distribution Width 14.3 % (11.5-14.5); Red Blood Cell (RBC) Count 3.72 10x6/uL (3.90-5.03); White Blood Cell (WBC) Count 6.8 10x3/uL (3.5-10.5)
[2023-09-10 05:03] LABS: Anion Gap 13 mmol/L (10-20); BUN (Urea Nitrogen) 38 mg/dL (9.8-20.1); Calc. Creatinine Clearance 90 mL/min (70-130); Carbon Dioxide 25 mmol/L (23-31); Chloride 106 mmol/L (98-107); Estimated GFR 53; Glucose 196 mg/dL (83-110); Potassium 4.2 mmol/L (3.5-5.1); Sodium 140 mmol/L (136-145)
[2023-09-10] MEDS: Ertapenem 1 GM in Sodium Chloride 0.9% 100 ML IVPB SCH (06:32)
[2023-09-10 08:48] VITALS: BP 116/64; TEMP 97.4
== END 2023-09-10 10:20 | DRG 690 ==
LOC: CSHTELE 19:58
PROVIDERS: ADMIT Student in an Organized Health Care Education/Training Program; ATTEND Internal Medicine
DX: N30.90 Cystitis, unspecified without hematuria (principal); N17.9 Acute kidney failure, unspecified; Z68.43 Body mass index [BMI] 50.0-59.9, adult; I10 Essential (primary) hypertension; E78.5 Hyperlipidemia, unspecified; E11.9 Type 2 diabetes mellitus without complications; J44.9 Chronic obstructive pulmonary disease, unspecified; B96.89 Other specified bacterial agents as the cause of diseases classified elsewhere; R53.81 Other malaise; M54.50 Low back pain, unspecified; G89.29 Other chronic pain; K21.9 Gastro-esophageal reflux disease without esophagitis; F41.8 Other specified anxiety disorders; E66.01 Morbid (severe) obesity due to excess calories; R32 Unspecified urinary incontinence; B96.20 Unspecified Escherichia coli [E. coli] as the cause of diseases classified elsewhere; Z88.5 Allergy status to narcotic agent; Z88.0 Allergy status to penicillin; Z79.82 Long term (current) use of aspirin; Z79.899 Other long term (current) drug therapy; Z79.4 Long term (current) use of insulin; Z90.710 Acquired absence of both cervix and uterus; Z90.49 Acquired absence of other specified parts of digestive tract; Z93.3 Colostomy status; Z91.199 Patient's noncompliance with other medical treatment and regimen due to unspecified reason
CPT/HCPCS: 36415; 36416; 80048; 83036; 84145; 85025; 86140; 87086; 94640; 94664; J1335; J1815; J2185; J3490; J7120; J7620

== ENCOUNTER 2024-03-27 15:24 | Inpatient (IN) | payer MEDICARE ==
[2024-03-27 16:34] LABS: Actual Bicarbonate (HCO3v) 24.1 mEq/L (22-28); Analyzer IN Cardio CS ER; Base Excess -1.5 mEq/L (-2 - +2); Calcium, Ionized (venous) 1.22 mmol/L (1.16-1.32); Chloride (VBG) 98 mmol/L (98-106); Hematocrit-VBG 43 % (36.0-47.0); Hemoglobin (Hb) 14.6 g/dL (11.7-16.1); Puncture Site Other Site; RapidComm Collect By LAB; Sodium 137 mmol/L (133-146); pH (venous) 7.359 (7.32-7.43)
[2024-03-27 16:53] LABS: #Basophils 0.04 10x3/uL (0.0-0.2); #Eosinophils 0.17 10x3/uL (0.0-0.5); #Monocytes 0.96 10x3/uL (0.0-1.1); #Neutrophils 8.56 10x3/uL (1.5-8.4); %Basophils 0.4 % (0.0-2.0); %Eosinophils 1.5 % (0.0-6.0); %Lymphocytes 14.5 % (18.0-47.0); %Monocytes 8.4 % (0.0-10.0); Hematocrit 40.6 % (34.9-44.5); Hemoglobin 13.9 g/dL (12.0-15.5); Mean Corpuscular HGB CONC 34.2 g/dL (32.0-36.0); Mean Corpuscular Hemoglobin 29.9 pg (27.0-33.0); Mean Corpuscular Volume 87.3 fL (81.6-98.3); Mean Platelet Volume 9.5 fL (7.4-10.4); Platelet Count 328 10x3/uL (150-450); RBC Distribution Width 12.2 % (11.5-14.5); Red Blood Cell (RBC) Count 4.65 10x6/uL (3.90-5.03); White Blood Cell (WBC) Count 11.4 10x3/uL (3.5-10.5)
[2024-03-27 17:13] LABS: ALT (SGPT) 15 U/L (8-55); AST (SGOT) 16 U/L (5-34); Albumin 3.7 g/dL (3.4-4.8); Alkaline Phosphatase 87 U/L (40-110); Anion Gap 16 mmol/L (10-20); BUN (Urea Nitrogen) 39 mg/dL (9.8-20.1); Bilirubin, Total 0.7 mg/dL (0.2-1.2); Calc. Creatinine Clearance 0 mL/min (70-130); Calcium 10.7 mg/dL (7.8-10.44); Carbon Dioxide 23 mmol/L (23-31); Chloride 100 mmol/L (98-107); Estimated GFR 40; Globulin 3.5 g/dL (2.4-3.5); Magnesium 1.5 mg/dL (1.6-2.6); Potassium 4.2 mmol/L (3.5-5.1); Protein, Total 7.2 g/dL (5.8-8.1); Sodium 135 mmol/L (136-145)
[2024-03-27 17:16] LABS: Glucose 416 mg/dL (83-110)
[2024-03-27 17:22] LABS: Phosphorus 2.9 mg/dL (2.3-4.7)
[2024-03-27] MEDS ORDERED: Ketorolac Tromethamine 30 MG (1 mL) VIAL ONE (18:22)
[2024-03-27] MEDS ORDERED: Magnesium 2 GM/50 ML BAG (IN WATER) ONE (18:23)
[2024-03-27 19:28] LABS: Bilirubin Neg (Negative); Blood, Urine 25 (Negative); Clarity Cloudy (Clear); Glucose, Urine (Dipstick) >=1000 mg/dL (Negative); Ketone, Urine Negative (Negative); Leukocyte 500 (Negative); Nitrite Negative (Negative); Protein, Urine (Dipstick) 30 mg/dl (Neg-Trace); Urobilinogen Normal mg/dL (Less than 2)
[2024-03-27 19:57] LABS: CAUTI Indications for Culture Pelvic or flank pain; WBC/HPF 21-50 HPF (0-3)
[2024-03-27] MEDS ORDERED: cefTRIAXone (ROCEPHIN) 2 GM VIAL ONE (19:57)
[2024-03-27 19:58] LABS: Bacteria/HPF 2+ HPF (None Seen); Yeast-Budding 2+ HPF (None Seen)
[2024-03-27 19:59] LABS: Mucous/LPF 1+ LPF (<2+)
[2024-03-27 20:02] LABS: Urine Culture Reflex Yes Yes
[2024-03-27] MEDS ORDERED: Ondansetron PF 4 MG/2 ML Vial IVP PRN (20:27)
[2024-03-27] MEDS ORDERED: Glucagon 1 MG/ML KIT IM PRN (20:27)
[2024-03-27] MEDS ORDERED: Ondansetron ODT 4 MG TAB PO PRN (20:27)
[2024-03-27] MEDS ORDERED: Dextrose 5% in Water 1,000 ML IV PRN (20:27)
[2024-03-27] MEDS ORDERED: Acetaminophen 650 MG Suppository PR PRN (20:27)
[2024-03-27] MEDS ORDERED: Dextrose 50% Abboject 50 ML SYRINGE SLOW IVP PRN (20:27)
[2024-03-27] MEDS ORDERED: Ipratropium/Albuterol 3 ML NEB NEB PRN (20:39)
[2024-03-27] MEDS: Heparin 5,000 UNITS/ML VIAL SC SCH (22:33)
[2024-03-27] MEDS: Sodium Chloride 0.9% 1,000 ML IV SCH (22:44)
[2024-03-28] MEDS: Acetaminophen 325 MG TAB PO PRN (00:18)
[2024-03-28] MEDS: Ketorolac Tromethamine 30 MG (1 mL) VIAL IVP PRN (00:20)
[2024-03-28 02:57] VITALS: BMI 31.0
[2024-03-28 03:28] LABS: Amphetamine Not Detected (NotDetected); Barbiturates Screen Not Detected (NotDetected); Benzodiazepine Screen Not Detected (NotDetected); Cocaine Metabolite Screen Not Detected (NotDetected); Methadone Not Detected (NotDetected); Methamphetamine Detected (NotDetected); Opiate Screen Not Detected (NotDetected); Oxycodone Screen Not Detected (NotDetected); Phencyclidine (PCP) Not Detected (NotDetected); THC/Cannabinoid Screen Not Detected (NotDetected); Tricyclic Screen Not Detected (NotDetected)
[2024-03-28 06:29] LABS: #Basophils 0.03 10x3/uL (0.0-0.2); #Eosinophils 0.27 10x3/uL (0.0-0.5); #Monocytes 0.61 10x3/uL (0.0-1.1); #Neutrophils 3.55 10x3/uL (1.5-8.4); %Basophils 0.5 % (0.0-2.0); %Eosinophils 4.3 % (0.0-6.0); %Lymphocytes 28.1 % (18.0-47.0); %Monocytes 9.8 % (0.0-10.0); %Neutrophils 57.1 % (40.0-75.0); Hematocrit 36.1 % (34.9-44.5); Hemoglobin 12.3 g/dL (12.0-15.5); Mean Corpuscular HGB CONC 34.1 g/dL (32.0-36.0); Mean Corpuscular Hemoglobin 30.1 pg (27.0-33.0); Mean Corpuscular Volume 88.3 fL (81.6-98.3); Mean Platelet Volume 9.8 fL (7.4-10.4); Platelet Count 265 10x3/uL (150-450); RBC Distribution Width 12.4 % (11.5-14.5); Red Blood Cell (RBC) Count 4.09 10x6/uL (3.90-5.03); White Blood Cell (WBC) Count 6.2 10x3/uL (3.5-10.5)
[2024-03-28 06:39] LABS: Phosphorus 2.7 mg/dL (2.3-4.7)
[2024-03-28 06:44] LABS: Anion Gap 16 mmol/L (10-20); BUN (Urea Nitrogen) 32 mg/dL (9.8-20.1); Calc. Creatinine Clearance 54 mL/min (70-130); Calcium 9.4 mg/dL (7.8-10.44); Carbon Dioxide 18 mmol/L (23-31); Chloride 108 mmol/L (98-107); Estimated GFR 51; Glucose 321 mg/dL (83-110); Potassium 4.2 mmol/L (3.5-5.1); Sodium 138 mmol/L (136-145)
[2024-03-28] MEDS: Heparin 5,000 UNITS/ML VIAL SC SCH (08:26)
[2024-03-28] MEDS: Lantus 1000 UNITS/10 ML VIAL SC SCH (09:54)
[2024-03-28] MEDS: Meropenem 1 GM in Sodium Chloride 0.9% 100 ML IVPB SCH ×2 (11:05→20:39)
[2024-03-28] MEDS ORDERED: Meropenem 1 GM in Sodium Chloride 0.9% 100 ML IVPB SCH (14:00)
[2024-03-28 14:30] LABS: Hemoglobin A1c 10.7 % (4.0-6.0)
[2024-03-28] MEDS ORDERED: cefTRIAXone\\ROCEPHIN 1 GM in Sodium Chloride 0.9% 100 ML IVPB SCH (20:30)
[2024-03-28] MEDS: Mometasone 100 MCG/Formoterol 5 MCG 60 PUFF AEROSOL INH SCH (21:00)
[2024-03-28] MEDS: Atorvastatin Calcium 20 MG TAB PO SCH (21:39)
[2024-03-28] MEDS: Insulin Lispro 100 UNIT/ML 10 ML VIAL SC PRN (23:19)
[2024-03-29] MEDS: Ketorolac Tromethamine 30 MG (1 mL) VIAL IVP SCH (00:59)
[2024-03-29 06:01] LABS: #Basophils 0.02 10x3/uL (0.0-0.2); #Monocytes 0.64 10x3/uL (0.0-1.1); #Neutrophils 4.32 10x3/uL (1.5-8.4); %Basophils 0.3 % (0.0-2.0); %Eosinophils 4.4 % (0.0-6.0); %Lymphocytes 21.5 % (18.0-47.0); %Monocytes 9.5 % (0.0-10.0); Hematocrit 33.6 % (34.9-44.5); Hemoglobin 11.2 g/dL (12.0-15.5); Mean Corpuscular HGB CONC 33.3 g/dL (32.0-36.0); Mean Corpuscular Hemoglobin 29.1 pg (27.0-33.0); Mean Corpuscular Volume 87.3 fL (81.6-98.3); Mean Platelet Volume 9.5 fL (7.4-10.4); Platelet Count 271 10x3/uL (150-450); RBC Distribution Width 12.2 % (11.5-14.5); Red Blood Cell (RBC) Count 3.85 10x6/uL (3.90-5.03); White Blood Cell (WBC) Count 6.8 10x3/uL (3.5-10.5)
[2024-03-29 06:24] LABS: Anion Gap 13 mmol/L (10-20); BUN (Urea Nitrogen) 26 mg/dL (9.8-20.1); Calc. Creatinine Clearance 58 mL/min (70-130); Calcium 8.6 mg/dL (7.8-10.44); Carbon Dioxide 19 mmol/L (23-31); Chloride 109 mmol/L (98-107); Estimated GFR 56; Glucose 333 mg/dL (83-110); Potassium 4.1 mmol/L (3.5-5.1); Sodium 137 mmol/L (136-145)
[2024-03-29] MEDS: Hydrochlorothiazide 25 MG TAB PO SCH (09:33)
[2024-03-29] MEDS: Pantoprazole DR 40 MG TAB PO SCH (09:34)
[2024-03-29] MEDS: Amlodipine 10 MG TAB PO SCH (09:34)
[2024-03-29] MEDS: Lantus 1000 UNITS/10 ML VIAL SC SCH (09:35)
[2024-03-29] MEDS: Valsartan 80 MG TAB PO SCH (09:41)
[2024-03-30] MEDS: Melatonin 3 MG TAB PO SCH (03:01)
[2024-03-30 08:38] LABS: Anion Gap 17 mmol/L (10-20); BUN (Urea Nitrogen) 21 mg/dL (9.8-20.1); Calc. Creatinine Clearance 66 mL/min (70-130); Calcium 9.1 mg/dL (7.8-10.44); Carbon Dioxide 16 mmol/L (23-31); Chloride 109 mmol/L (98-107); Estimated GFR 65; Glucose 242 mg/dL (83-110); Sodium 137 mmol/L (136-145)
[2024-03-30 08:41] LABS: Potassium 5.1 mmol/L (3.5-5.1)
[2024-03-30 08:42] LABS: #Basophils 0.05 10x3/uL (0.0-0.2); #Eosinophils 0.36 10x3/uL (0.0-0.5); #Monocytes 0.68 10x3/uL (0.0-1.1); #Neutrophils 5.04 10x3/uL (1.5-8.4); %Basophils 0.6 % (0.0-2.0); %Eosinophils 4.7 % (0.0-6.0); %Monocytes 8.8 % (0.0-10.0); %Neutrophils 65.4 % (40.0-75.0); Hemoglobin 13.3 g/dL (12.0-15.5); Mean Corpuscular HGB CONC 34.1 g/dL (32.0-36.0); Mean Corpuscular Hemoglobin 30.1 pg (27.0-33.0); Mean Corpuscular Volume 88.2 fL (81.6-98.3); Mean Platelet Volume 9.8 fL (7.4-10.4); Platelet Count 286 10x3/uL (150-450); RBC Distribution Width 12.5 % (11.5-14.5); Red Blood Cell (RBC) Count 4.42 10x6/uL (3.90-5.03); White Blood Cell (WBC) Count 7.7 10x3/uL (3.5-10.5)
[2024-03-30] MEDS: Apixaban 5 MG TAB PO SCH (20:31)
[2024-03-31 02:02] LABS: Bilirubin Neg (Negative); Blood, Urine 25 (Negative); Clarity Cloudy (Clear); Glucose, Urine (Dipstick) >=1000 mg/dL (Negative); Ketone, Urine 5 mg/dL (Negative); Leukocyte 500 (Negative); Nitrite Negative (Negative); Protein, Urine (Dipstick) 30 mg/dl (Neg-Trace); Specific Gravity, Urine 1.015 (1.005-1.030); Urobilinogen Normal mg/dL (Less than 2)
[2024-03-31 02:27] LABS: Bacteria/HPF 2+ HPF (None Seen); RBC/HPF 0-3 HPF (0-3); Squamous Epithelial 0-3 HPF (0-3); WBC/HPF Greater Than 50 HPF (0-3); Yeast-Budding 2+ HPF (None Seen)
[2024-03-31 08:28] LABS: Anion Gap 14 mmol/L (10-20); BUN (Urea Nitrogen) 24 mg/dL (9.8-20.1); Calc. Creatinine Clearance 59 mL/min (70-130); Calcium 9.3 mg/dL (7.8-10.44); Carbon Dioxide 20 mmol/L (23-31); Chloride 108 mmol/L (98-107); Estimated GFR 57; Glucose 252 mg/dL (83-110); Potassium 4.3 mmol/L (3.5-5.1); Sodium 138 mmol/L (136-145)
[2024-04-01] MEDS: Meropenem 1 GM in Sodium Chloride 0.9% 100 ML IVPB SCH (00:01)
[2024-04-01] MEDS: traMADol HCl 50 MG TAB PO SCH (00:44)
[2024-04-01] MEDS ORDERED: Lantus 1000 UNITS/10 ML VIAL SC SCH (09:00)
[2024-04-01] MEDS: Lantus 1000 UNITS/10 ML VIAL SC SCH (09:59)
[2024-04-02] MEDS: traMADol HCl 50 MG TAB PO PRN (00:55)
[2024-04-02 08:00] LABS: Anion Gap 16 mmol/L (10-20); BUN (Urea Nitrogen) 37 mg/dL (9.8-20.1); Calc. Creatinine Clearance 62 mL/min (70-130); Calcium 9.2 mg/dL (7.8-10.44); Carbon Dioxide 19 mmol/L (23-31); Chloride 106 mmol/L (98-107); Estimated GFR 61; Glucose 306 mg/dL (83-110); Potassium 4.2 mmol/L (3.5-5.1); Sodium 137 mmol/L (136-145)
[2024-04-02] MEDS: Lantus 1000 UNITS/10 ML VIAL SC SCH (09:53)
[2024-04-03] MEDS: Pioglitazone HCl 15 MG TAB PO SCH (08:47)
[2024-04-03] MEDS: Lantus 1000 UNITS/10 ML VIAL SC SCH ×2 (10:47→11:49)
[2024-04-03] MEDS: Fluconazole 100 MG TAB PO SCH (13:52)
[2024-04-03 14:34] VITALS: BMI 31.0
[2024-04-04 20:57] VITALS: BP 104/57; TEMP 97.4
== END 2024-04-04 22:48 | disposition home health service (06) | DRG 637 ==
LOC: SUATTDRO 15:24 → CSHERS 15:24 → CSHTELE 20:31
PROVIDERS: ADMIT Family Medicine; ATTEND Family Medicine
DX: E11.65 Type 2 diabetes mellitus with hyperglycemia (principal); G93.41 Metabolic encephalopathy; E87.20 Acidosis, unspecified; N17.9 Acute kidney failure, unspecified; N39.0 Urinary tract infection, site not specified; E87.6 Hypokalemia; E78.5 Hyperlipidemia, unspecified; G89.29 Other chronic pain; J44.9 Chronic obstructive pulmonary disease, unspecified; I12.9 Hypertensive chronic kidney disease with stage 1 through stage 4 chronic kidney disease, or unspecified chronic kidney disease; N18.9 Chronic kidney disease, unspecified; E11.22 Type 2 diabetes mellitus with diabetic chronic kidney disease; E11.40 Type 2 diabetes mellitus with diabetic neuropathy, unspecified; Z79.899 Other long term (current) drug therapy; Z88.0 Allergy status to penicillin; Z88.8 Allergy status to other drugs, medicaments and biological substances; Z86.19 Personal history of other infectious and parasitic diseases
CPT/HCPCS: 36415; 36416; 80048; 80053; 80306; 81001; 81003; 81015; 82010; 82805; 83036; 83605; 83735; 83930; 84100; 85025; 87077; 87086; 93005; 94664; 94760; 94762; 96365; 96375; J0696; J1644; J1815; J1885; J2185; J3475; J7030

== ENCOUNTER 2024-05-04 13:20 | Emergency (ER) | payer MEDICARE ==
[2024-05-04 14:10] LABS: #Basophils 0.03 10x3/uL (0.0-0.2); #Eosinophils 0.29 10x3/uL (0.0-0.5); #Monocytes 0.56 10x3/uL (0.0-1.1); #Neutrophils 6.84 10x3/uL (1.5-8.4); %Basophils 0.3 % (0.0-2.0); %Eosinophils 3.2 % (0.0-6.0); %Lymphocytes 15.4 % (18.0-47.0); %Monocytes 6.1 % (0.0-10.0); %Neutrophils 74.7 % (40.0-75.0); Hematocrit 36.1 % (34.9-44.5); Hemoglobin 11.9 g/dL (12.0-15.5); Mean Corpuscular Hemoglobin 28.7 pg (27.0-33.0); Mean Corpuscular Volume 87.2 fL (81.6-98.3); Mean Platelet Volume 9.9 fL (7.4-10.4); Platelet Count 267 10x3/uL (150-450); RBC Distribution Width 13.2 % (11.5-14.5); Red Blood Cell (RBC) Count 4.14 10x6/uL (3.90-5.03); White Blood Cell (WBC) Count 9.16 10x3/uL (3.5-10.5)
[2024-05-04 14:22] LABS: Phosphorus 3.1 mg/dL (2.3-4.7)
[2024-05-04 14:23] LABS: Actual Bicarbonate (HCO3v) 21.5 mEq/L (22-28); Analyzer IN Cardio CS ER; Base Excess -3.8 mEq/L (-2 - +2); Calcium, Ionized (venous) 1.13 mmol/L (1.16-1.32); Chloride (VBG) 103 mmol/L (98-106); Critical Notified Whom: bluma; Hematocrit-VBG 38 % (36.0-47.0); Potassium (VBG) 4.15 mmol/L (3.70-5.30); Puncture Site Other Site; RapidComm Collect By LAB; Sodium 138 mmol/L (133-146); pH (venous) 7.347 (7.32-7.43)
[2024-05-04 14:28] LABS: ALT (SGPT) 16 U/L (8-55); AST (SGOT) 15 U/L (5-34); Albumin 3.3 g/dL (3.4-4.8); Alkaline Phosphatase 118 U/L (40-110); Anion Gap 14 mmol/L (10-20); BUN (Urea Nitrogen) 19 mg/dL (9.8-20.1); Bilirubin, Total 0.4 mg/dL (0.2-1.2); Calc. Creatinine Clearance 0 mL/min (70-130); Calcium 8.9 mg/dL (7.8-10.44); Carbon Dioxide 19 mmol/L (23-31); Chloride 106 mmol/L (98-107); Estimated GFR 59; Globulin 3.5 g/dL (2.4-3.5); Glucose 376 mg/dL (83-110); Lipase 9 U/L (8-78); Magnesium 1.6 mg/dL (1.6-2.6); Potassium 4.1 mmol/L (3.5-5.1); Protein, Total 6.8 g/dL (5.8-8.1); Sodium 135 mmol/L (136-145)
[2024-05-04] MEDS ORDERED: Insulin Regular, Human 100 UNIT/ML 10 ML VIAL ONE (14:31)
== END 2024-05-04 17:30 | disposition home or self-care (01) ==
LOC: CSHERS 13:20
DX: E11.65 Type 2 diabetes mellitus with hyperglycemia (principal); E11.40 Type 2 diabetes mellitus with diabetic neuropathy, unspecified; I10 Essential (primary) hypertension
CPT/HCPCS: 80053; 82010; 82805; 82962; 83605; 83690; 83735; 84100; 85025; J1815; 36416; 96374

== ENCOUNTER 2024-11-25 02:06 | Inpatient (IN) | payer MEDICARE, MEDICAID ==
[2024-11-25 02:50] LABS: Glucose, Urine (Dipstick) Normal (Negative); Leukocyte 25 (Negative); Protein, Urine (Dipstick) 100 mg/dl (Neg-Trace); Specific Gravity, Urine 1.020 (1.005-1.030)
[2024-11-25 02:58] LABS: Bacteria/HPF 4+ HPF (None Seen); CAUTI Indications for Culture Alt mental st,lethar; RBC/HPF 0-3 HPF (0-3)
[2024-11-25 02:59] LABS: Urine Culture Reflex No No
[2024-11-25 03:16] LABS: #Basophils 0.04 10x3/uL (0.0-0.2); #Eosinophils 0.19 10x3/uL (0.0-0.5); #Monocytes 1.03 10x3/uL (0.0-1.1); #Neutrophils 6.48 10x3/uL (1.5-8.4); %Basophils 0.4 % (0.0-2.0); %Eosinophils 2.0 % (0.0-6.0); %Lymphocytes 19.9 % (18.0-47.0); %Monocytes 10.6 % (0.0-10.0); %Neutrophils 66.8 % (40.0-75.0); Hematocrit 35.7 % (34.9-44.5); Hemoglobin 11.7 g/dL (12.0-15.5); Mean Corpuscular Hemoglobin 28.4 pg (27.0-33.0); Mean Corpuscular Volume 86.7 fL (81.6-98.3); Platelet Count 277 10x3/uL (150-450); Red Blood Cell (RBC) Count 4.12 10x6/uL (3.90-5.03); White Blood Cell (WBC) Count 9.70 10x3/uL (3.5-10.5)
[2024-11-25 03:35] LABS: ALT (SGPT) 12 U/L (Less than 34); AST (SGOT) 26 U/L (11-34); Albumin 3.7 g/dL (3.1-4.5); Alkaline Phosphatase 90 U/L (40-110); Anion Gap 20 mmol/L (10-20); BUN (Urea Nitrogen) 25 mg/dL (9.8-20.1); Bilirubin, Total 0.9 mg/dL (0.3-1.2); Calc. Creatinine Clearance 0 mL/min (70-130); Calcium 9.0 mg/dL (7.8-10.44); Carbon Dioxide 20 mmol/L (23-31); Chloride 107 mmol/L (98-107); Globulin 3.5 g/dL (2.4-3.5); Glucose 141 mg/dL (83-110); Potassium 3.7 mmol/L (3.5-5.1); Sodium 143 mmol/L (136-145)
[2024-11-25] MEDS ORDERED: cefTRIAXone (ROCEPHIN) 1 GM VIAL ONE (03:41)
[2024-11-25] MEDS ORDERED: Ondansetron PF 4 MG/2 ML Vial IVP PRN (06:18)
[2024-11-25] MEDS ORDERED: Glucagon 1 MG/ML KIT IM PRN (06:30)
[2024-11-25] MEDS ORDERED: Dextrose 50% Abboject 50 ML SYRINGE SLOW IVP PRN (06:30)
[2024-11-25 09:47] VITALS: BMI 32.1
[2024-11-25] MEDS ORDERED: Enoxaparin 40 MG (0.4 mL) SYRINGE ONE (09:48)
[2024-11-25] MEDS ORDERED: Famotidine/PF 20 mg/2ml Vial ONE (09:49)
[2024-11-25] MEDS: Enoxaparin 40 MG (0.4 mL) SYRINGE SC SCH (10:22)
[2024-11-25] MEDS: Famotidine/PF 20 mg/2ml Vial SLOW IVP SCH ×2 (10:22→22:20)
[2024-11-26] MEDS ORDERED: Furosemide 40 MG TAB PO PRN (00:55)
[2024-11-26] MEDS ORDERED: Haloperidol 1 MG TAB PO PRN (01:06)
[2024-11-26] MEDS: QUEtiapine 25 MG TAB PO SCH ×2 (01:19→09:31)
[2024-11-26] MEDS: cefTRIAXone\\ROCEPHIN 1 GM in Sodium Chloride 0.9% 100 ML IVPB SCH (06:04)
[2024-11-26] MEDS: Losartan 50 MG TAB PO SCH (09:32)
[2024-11-26] MEDS: Enoxaparin 40 MG (0.4 mL) SYRINGE SC SCH (09:32)
[2024-11-26] MEDS: Lantus 1000 UNITS/10 ML VIAL SC SCH (09:33)
[2024-11-26] MEDS: Mometasone 100 MCG/Formoterol 5 MCG 60 PUFF AEROSOL INH SCH (10:12)
[2024-11-26] MEDS: Melatonin 3 MG TAB PO SCH (20:25)
[2024-11-26] MEDS: Apixaban 5 MG TAB PO SCH (20:26)
[2024-11-27] MEDS: Acetaminophen/Codeine 30-300mg Tablet PO PRN (00:47)
[2024-11-27] MEDS: Transdermal Patch Removal TOP SCH (01:43)
[2024-11-27] MEDS: Losartan 50 MG TAB PO SCH (16:17)
[2024-11-27] MEDS: Acetaminophen 325 MG TAB PO PRN (18:12)
[2024-11-28 05:51] LABS: #Basophils 0.03 10x3/uL (0.0-0.2); #Eosinophils 0.44 10x3/uL (0.0-0.5); #Monocytes 0.88 10x3/uL (0.0-1.1); #Neutrophils 5.87 10x3/uL (1.5-8.4); %Basophils 0.3 % (0.0-2.0); %Eosinophils 5.0 % (0.0-6.0); %Lymphocytes 17.9 % (18.0-47.0); %Monocytes 10.0 % (0.0-10.0); %Neutrophils 66.6 % (40.0-75.0); Hematocrit 34.0 % (34.9-44.5); Hemoglobin 11.2 g/dL (12.0-15.5); Mean Corpuscular Hemoglobin 28.9 pg (27.0-33.0); Mean Corpuscular Volume 87.6 fL (81.6-98.3); Platelet Count 267 10x3/uL (150-450); Red Blood Cell (RBC) Count 3.88 10x6/uL (3.90-5.03); White Blood Cell (WBC) Count 8.82 10x3/uL (3.5-10.5)
[2024-11-28 06:03] LABS: Anion Gap 10 mmol/L (10-20); BUN (Urea Nitrogen) 20 mg/dL (9.8-20.1); Calc. Creatinine Clearance 66 mL/min (70-130); Calcium 8.6 mg/dL (7.8-10.44); Carbon Dioxide 24 mmol/L (23-31); Chloride 108 mmol/L (98-107); Glucose 155 mg/dL (83-110); Potassium 3.9 mmol/L (3.5-5.1); Sodium 138 mmol/L (136-145)
[2024-11-28] MEDS: Losartan 50 MG TAB PO SCH (09:42)
[2024-11-28] MEDS: Acetaminophen 500 MG TAB PO PRN (21:05)
[2024-11-29 06:03] LABS: #Basophils 0.03 10x3/uL (0.0-0.2); #Eosinophils 0.34 10x3/uL (0.0-0.5); #Monocytes 0.62 10x3/uL (0.0-1.1); #Neutrophils 4.10 10x3/uL (1.5-8.4); %Basophils 0.5 % (0.0-2.0); %Eosinophils 5.6 % (0.0-6.0); %Lymphocytes 16.5 % (18.0-47.0); %Monocytes 10.1 % (0.0-10.0); %Neutrophils 67.0 % (40.0-75.0); Hematocrit 33.4 % (34.9-44.5); Hemoglobin 10.6 g/dL (12.0-15.5); Mean Corpuscular Hemoglobin 28.6 pg (27.0-33.0); Mean Corpuscular Volume 90.0 fL (81.6-98.3); Platelet Count 208 10x3/uL (150-450); Red Blood Cell (RBC) Count 3.71 10x6/uL (3.90-5.03); White Blood Cell (WBC) Count 6.12 10x3/uL (3.5-10.5)
[2024-11-29 06:18] LABS: Anion Gap 12 mmol/L (10-20); BUN (Urea Nitrogen) 23 mg/dL (9.8-20.1); Calc. Creatinine Clearance 78 mL/min (70-130); Calcium 8.5 mg/dL (7.8-10.44); Carbon Dioxide 23 mmol/L (23-31); Chloride 109 mmol/L (98-107); Glucose 204 mg/dL (83-110); Potassium 3.9 mmol/L (3.5-5.1); Sodium 140 mmol/L (136-145)
[2024-11-29 12:29] VITALS: BP 133/57; TEMP 98.1
== END 2024-11-29 15:50 | disposition home or self-care (01) | DRG 689 ==
LOC: CSHERS 02:06 → CSHERHOLD 05:47 → CSHTELE 14:25 → OBSVTOIN 15:13
PROVIDERS: ADMIT Hospitalist; ATTEND Hospitalist
DX: N30.00 Acute cystitis without hematuria (principal); G93.41 Metabolic encephalopathy; I10 Essential (primary) hypertension; E11.9 Type 2 diabetes mellitus without complications; J44.9 Chronic obstructive pulmonary disease, unspecified; G89.29 Other chronic pain; M54.42 Lumbago with sciatica, left side; E78.2 Mixed hyperlipidemia; F03.90 Unspecified dementia, unspecified severity, without behavioral disturbance, psychotic disturbance, mood disturbance, and anxiety; K21.9 Gastro-esophageal reflux disease without esophagitis; B96.89 Other specified bacterial agents as the cause of diseases classified elsewhere; Z88.8 Allergy status to other drugs, medicaments and biological substances; Z88.0 Allergy status to penicillin; Z79.899 Other long term (current) drug therapy
CPT/HCPCS: 36415; 36416; 70450; 70551; 80048; 80053; 81001; 83605; 85025; 87077; 87086; 87186; 93005; 94640; 94664; 96374; J0696; J1308; J1650; J1815; J2185; J7030; J7620

== ENCOUNTER 2024-12-30 08:32 | Emergency (ER) | payer MEDICARE, MEDICAID ==
[2024-12-30 09:22] LABS: Actual Bicarbonate (HCO3v) 17.9 mEq/L (22-28); Analyzer IN Cardio CS ER; Base Excess -6.3 mEq/L (-2 - +2); Calcium, Ionized (venous) 1.12 mmol/L (1.16-1.32); Chloride (VBG) 108 mmol/L (98-106); Critical Notified Whom: FERME; Hematocrit-VBG 36 % (36.0-47.0); Hemoglobin (Hb) 12.2 g/dL (11.7-16.1); Potassium (VBG) 5.12 mmol/L (3.70-5.30); Puncture Site Other Site; RapidComm Collect By LAB; Sodium 141 mmol/L (133-146)
[2024-12-30] MEDS ORDERED: Droperidol 5 MG/2 ML VIAL ONE ×2 (09:33→09:59)
[2024-12-30 09:35] LABS: #Basophils 0.03 10x3/uL (0.0-0.2); #Eosinophils 0.18 10x3/uL (0.0-0.5); #Monocytes 1.03 10x3/uL (0.0-1.1); #Neutrophils 14.05 10x3/uL (1.5-8.4); %Basophils 0.2 % (0.0-2.0); %Eosinophils 1.1 % (0.0-6.0); %Lymphocytes 5.3 % (18.0-47.0); %Monocytes 6.3 % (0.0-10.0); %Neutrophils 86.6 % (40.0-75.0); Hematocrit 34.3 % (34.9-44.5); Hemoglobin 10.7 g/dL (12.0-15.5); Mean Corpuscular Hemoglobin 28.4 pg (27.0-33.0); Mean Corpuscular Volume 91.0 fL (81.6-98.3); Platelet Count 503 10x3/uL (150-450); Red Blood Cell (RBC) Count 3.77 10x6/uL (3.90-5.03); White Blood Cell (WBC) Count 16.23 10x3/uL (3.5-10.5)
[2024-12-30 09:50] LABS: ALT (SGPT) 11 U/L (Less than 34); AST (SGOT) 15 U/L (11-34); Albumin 3.3 g/dL (3.1-4.5); Alkaline Phosphatase 124 U/L (40-110); Anion Gap 21 mmol/L (10-20); BUN (Urea Nitrogen) 90 mg/dL (9.8-20.1); Bilirubin, Total 0.8 mg/dL (0.3-1.2); Calc. Creatinine Clearance 0 mL/min (70-130); Calcium 8.8 mg/dL (7.8-10.44); Carbon Dioxide 18 mmol/L (23-31); Chloride 109 mmol/L (98-107); Globulin 4.0 g/dL (2.4-3.5); Glucose 110 mg/dL (83-110); Potassium 5.6 mmol/L (3.5-5.1); Sodium 142 mmol/L (136-145)
[2024-12-30 10:00] LABS: Troponin I 0.012 ng/mL (< 0.028)
[2024-12-30 10:07] LABS: Lipase Less than 4 U/L (8-78)
[2024-12-30] MEDS ORDERED: Iopamidol 370 76% 100 ML VIAL ONE (10:23)
[2024-12-30] MEDS ORDERED: LevoFLOXacin 750 mg/D5W 150 ml Premix Bag ONE (11:20)
[2024-12-30 11:37] LABS: Glucose, Urine (Dipstick) Normal (Negative); Leukocyte 500 (Negative); Protein, Urine (Dipstick) 30 mg/dl (Neg-Trace); Specific Gravity, Urine 1.015 (1.005-1.030)
[2024-12-30 11:48] LABS: CAUTI Indications for Culture Alt mental st,lethar; WBC/HPF Greater than 50 HPF (0-3)
[2024-12-30 11:49] LABS: Bacteria/HPF 4+ HPF (None Seen); Urine Culture Reflex Yes Yes
== END 2024-12-30 17:55 | disposition short-term general hospital (02) ==
LOC: CSHERS 08:32
DX: J98.09 Other diseases of bronchus, not elsewhere classified (principal); J96.01 Acute respiratory failure with hypoxia; N17.9 Acute kidney failure, unspecified; L89.899 Pressure ulcer of other site, unspecified stage; E11.42 Type 2 diabetes mellitus with diabetic polyneuropathy; J44.9 Chronic obstructive pulmonary disease, unspecified; I10 Essential (primary) hypertension
CPT/HCPCS: 70450; 70491; 71045; 71275; 74177; 80053; 81001; 82805; 83690; 83880; 84484; 85025; 85379; 87040; 87070; 87077; 87086; 87186; 87205; 93005; J1790; J1956; J2060; J2185; J3010; Q9967; 36415; 96365; 96375; J7620